=== PATIENT | male | born 1945 | race Caucasian/White ===

== ENCOUNTER 2023-12-10 14:09 | Emergency (ER) | payer MEDICARE ==
[~2023-12-10] VITALS: Ht 182.9 cm; Wt 126.1 kg
[~2023-12-10 14:09] MED LIST: CARVEDILOL12.5 MG PO; CLOPIDOGREL75 MG PO; CRESTOR20 MG PO; FUROSEMIDE20 MG PO; LOSARTAN POT100 MG PO
[2023-12-10 14:34] VITALS: BP 148/78
[2023-12-10] MEDS ORDERED: LIDOcaine HCl 1% (Local Anesth.) 20 ML VIAL STI STA (14:39)
[2023-12-10] MEDS ORDERED: Diph, Acellular Pertussis, Tet 0.5 ML/VIAL (Tdap) SDV IM ONE (14:40)
[2023-12-10] MEDS ORDERED: POVIDONE IODINE 0.5 OZ/BTL TOP ONE (14:40)
[2023-12-10 14:46] VITALS: BP 136/71
[2023-12-10 15:00] VITALS: BP 136/78
[2023-12-10] MEDS ORDERED: CEPHALEXIN500 M1 PO ×2 (15:15→15:17)
== END 2023-12-10 15:23 | disposition home or self-care (01) ==
LOC: ED 14:09
PROC: 0HQNXZZ Repair Left Foot Skin, External Approach (ICD-10-PCS; principal; 2023-12-10)
DX: S91.012A Laceration without foreign body, left ankle, initial encounter (principal); I10 Essential (primary) hypertension; E11.9 Type 2 diabetes mellitus without complications; W20.8XXA Other cause of strike by thrown, projected or falling object, initial encounter